=== PATIENT | female | born 1995 | race Caucasian/White ===

== ENCOUNTER 2016-12-01 09:14 | Emergency (ER) | payer OTHER ==
[~2016-12-01] VITALS: Ht 162.6 cm; Wt 64.3 kg
[~2016-12-01 09:14] MED LIST: ADDERALL10 MG PO; ATARAX,VISTARIL50 MG PO; ATARAX10 MG PO; ENDOCET 5-3251 EACH PO; ERYTHROMYCIN O3.5 GM BOTH EYES; FIORICET 50-301 EACH PO; FLEXERIL10 MG PO; IBUPROFEN800 MG PO; LIDODERM 5% P1 PATCH TD; NAPROSYN500 MG PO; NOHOMEMEDS; PRENATAL TABLE1 EAC3 PO; PRENATAL VITAM1 EAC1 PO; PROMETRIUM200 M1 VG; TYLENOL WITH C1 EACH PO; UNISOM50 MG PO; VYVANSE10 MG PO; ZOFRAN ODT4 MG PO; ZOFRAN4 MG PO
[2016-12-01 09:19] VITALS: BP 121/93
[2016-12-01] MEDS ORDERED: IBUPROFEN800 MG PO ×2 (09:39→11:04)
[2016-12-01] MEDS ORDERED: AUGMENTIN500 MG PO (09:40)
[2016-12-01] MEDS ORDERED: TRAMADOL HCL50 MG PO (11:04)
[2016-12-01] MEDS ORDERED: CLINDAMYCIN HC150 MG PO (11:04)
== END 2016-12-01 11:21 | disposition home or self-care (01) ==
LOC: EME 09:14
PROC: 3E0T3BZ Introduction of Anesthetic Agent into Peripheral Nerves and Plexi, Percutaneous Approach (ICD-10-PCS; principal; 2016-12-01)
DX: K04.7 Periapical abscess without sinus (principal); K08.89 Other specified disorders of teeth and supporting structures; J45.909 Unspecified asthma, uncomplicated; F17.200 Nicotine dependence, unspecified, uncomplicated
CPT/HCPCS: 93005; 99281; 99284

== ENCOUNTER 2018-01-10 08:47 | Emergency (ER) | payer OTHER ==
[~2018-01-10] VITALS: Ht 162.6 cm; Wt 69.7 kg
[~2018-01-10 08:47] MED LIST changes: +AUGMENTIN500 MG PO; +CLINDAMYCIN HC150 MG PO; +TRAMADOL HCL50 MG PO
[2018-01-10] MEDS ORDERED: ATARAX,VISTARIL50 MG PO (10:50)
[2018-01-10 11:36] VITALS: BP 127/86
== END 2018-01-10 11:36 | disposition home or self-care (01) ==
LOC: EME 08:47
DX: F41.0 Panic disorder [episodic paroxysmal anxiety] (principal); R45.851 Suicidal ideations; F32.9 Major depressive disorder, single episode, unspecified; R07.9 Chest pain, unspecified; J45.909 Unspecified asthma, uncomplicated; F90.9 Attention-deficit hyperactivity disorder, unspecified type; F17.200 Nicotine dependence, unspecified, uncomplicated
CPT/HCPCS: 90839; 93005; 99281; 99283